=== PATIENT | female | born 1975 ===

== ENCOUNTER 2018-09-06 06:30 | Day surgery (SDC) | payer OTHER ==
[2018-09-06] MEDS ORDERED: LIDOCAINE HCL 1% PF 300MG/30ML VIAL ONE (08:48)
[2018-09-06] MEDS ORDERED: ENOXAPARIN SODIUM 40 MG/0.4 ML DISP.SYRIN SQ ONE (08:48)
[2018-09-06] MEDS ORDERED: SODIUM CHLORIDE IRRIG SOLUTION 3,000 ML IRRIG.SOLN IR ONE (08:48)
[2018-09-06] MEDS ORDERED: SCOPOLAMINE HYDROBROMIDE 1.5MG/72HR PATCH TD ONE (08:48)
[2018-09-06] MEDS ORDERED: VASOPRESSIN 20 UNIT/1 ML ONE (08:48)
[2018-09-06] MEDS ORDERED: ROCURONIUM BROMIDE 10 MG/ML 5ML VIAL ONE (08:48)
[2018-09-06] MEDS ORDERED: LACTATED RINGERS 1,000 ML IV.SOLN IV ONE ×2 (08:48)
[2018-09-06] MEDS ORDERED: SEVOFLURANE 250 ML LIQUID IH ONE (08:48)
[2018-09-06] MEDS ORDERED: PROPOFOL 200 MG/20 ML VIAL IV ONE (08:48)
[2018-09-06] MEDS ORDERED: DEXAMETHASONE SODIUM PHOSPHATE 10 MG/ML VIAL ONE (08:48)
[2018-09-06] MEDS ORDERED: LIDOCAINE HCL 2% PF 100MG/5ML VIAL IJ ONE (08:48)
[2018-09-06] MEDS ORDERED: HYDROmorphone HCL/PF 1 MG/ML VIAL ONE (08:48)
[2018-09-06] MEDS ORDERED: GLYCOPYRROLATE 0.2 MG/1 ML 1 ML ONE (08:48)
[2018-09-06] MEDS ORDERED: ePHEDrine SULFATE 50 MG/1 ML IVP ONE (08:48)
[2018-09-06] MEDS ORDERED: FAMOTIDINE 20 MG/2 ML VIAL IV ONE (08:48)
[2018-09-06] MEDS ORDERED: ceFAZolin SODIUM 1 GM VIAL ONE (08:48)
[2018-09-06] MEDS ORDERED: SUGAMMADEX SODIUM 200 MG/2 ML VIAL IV ONE (08:48)
[2018-09-06] MEDS ORDERED: BUPIV. HCL 0.25% (2.5MG/ML)/EPI. (1:200,000) PF 30 ML VIAL IJ ONE (08:48)
[2018-09-06] MEDS ORDERED: ONDANSETRON HCL/PF 4 MG/ 2ML VIAL ONE (08:48)
[2018-09-06] MEDS ORDERED: fentaNYL CITRATE/PF 100 MCG/2 ML INJ. ONE (08:48)
== END 2018-09-06 10:49 | disposition other institution (70) ==
LOC: OPSURG 06:30
PROVIDERS: ATTEND Surgery
DX: E66.01 Morbid (severe) obesity due to excess calories (principal); Z68.41 Body mass index [BMI] 40.0-44.9, adult
CPT/HCPCS: J0690; J1170; J1650; J2001; J2405; J2704; J3010; J3490; A9270-GY; J7120

== ENCOUNTER 2018-09-06 10:50 | Inpatient (IN) | payer OTHER ==
[2018-09-06] MEDS ORDERED: MORPHINE SULFATE 2 MG/ML VIAL ONE ×4 (11:31→22:52)
[2018-09-06] MEDS ORDERED: ceFAZolin SODIUM 1 GM/50 ML PIGGYBACK IV ONE (16:13)
[2018-09-06] MEDS ORDERED: HYDROcodone-ACETAMIN 7.5-325/15ML SOLN UD CUP PO ONE ×2 (16:15→21:21)
[2018-09-06] MEDS ORDERED: NORMAL SALINE 1,000 ML IV.SOLN IV ONE (18:12)
[2018-09-06] MEDS ORDERED: ACETAMINOPHEN 1,000 MG/100 ML INJ IV ONE (20:18)
[2018-09-07] MEDS ORDERED: ceFAZolin SODIUM 1 GM/50 ML PIGGYBACK IV ONE (00:28)
[2018-09-07] MEDS ORDERED: NORMAL SALINE 1,000 ML IV.SOLN IV ONE ×2 (00:30→08:01)
[2018-09-07] MEDS ORDERED: HYDROcodone-ACETAMIN 7.5-325/15ML SOLN UD CUP PO ONE ×4 (01:01→22:36)
[2018-09-07] MEDS ORDERED: MORPHINE SULFATE 2 MG/ML VIAL ONE (05:14)
[2018-09-07] MEDS ORDERED: ENOXAPARIN SODIUM 40 MG/0.4 ML DISP.SYRIN SQ ONE (08:01)
[2018-09-07] MEDS ORDERED: ONDANSETRON HCL/PF 4 MG/ 2ML VIAL ONE (08:06)
[2018-09-07] MEDS ORDERED: KETOROLAC TROMETHAMINE 30 MG/1ML VIAL ONE ×2 (11:57→19:53)
[2018-09-07] MEDS ORDERED: FAMOTIDINE 20 MG/2 ML VIAL IV ONE (19:53)
[2018-09-08] MEDS ORDERED: HYDROcodone-ACETAMIN 7.5-325/15ML SOLN UD CUP PO ONE ×2 (03:52→07:53)
[2018-09-08] MEDS ORDERED: KETOROLAC TROMETHAMINE 30 MG/1ML VIAL ONE (05:53)
[2018-09-12 10:15] LABS: eGFR (Non-African) > 60
[2018-09-12 10:16] LABS: BASOPHILS % 0.5 % (0.0-1.5); NEUTROPHILS # 13.6 # k/uL (1.4-7.7)
== END 2018-09-08 12:00 | disposition home or self-care (01) | DRG 620 ==
LOC: SOUTH 10:50 → UNDOADMIN 10:50 → ICF 10:50
PROVIDERS: ADMIT Nurse Practitioner Family; ATTEND Nurse Practitioner Family
PROC: 0DB64Z3 Excision of Stomach, Percutaneous Endoscopic Approach, Vertical (ICD-10-PCS; principal; 2018-09-06)
DX: E88.81 Metabolic syndrome and other insulin resistance (principal); Z68.41 Body mass index [BMI] 40.0-44.9, adult; E66.01 Morbid (severe) obesity due to excess calories; I10 Essential (primary) hypertension; E11.9 Type 2 diabetes mellitus without complications; F41.9 Anxiety disorder, unspecified; E78.5 Hyperlipidemia, unspecified; K21.9 Gastro-esophageal reflux disease without esophagitis; H53.009 Unspecified amblyopia, unspecified eye; F32.9 Major depressive disorder, single episode, unspecified; F31.9 Bipolar disorder, unspecified; M79.7 Fibromyalgia; M17.0 Bilateral primary osteoarthritis of knee; M19.071 Primary osteoarthritis, right ankle and foot; M16.0 Bilateral primary osteoarthritis of hip; G89.29 Other chronic pain; M54.9 Dorsalgia, unspecified; N39.3 Stress incontinence (female) (male); J45.909 Unspecified asthma, uncomplicated; M19.072 Primary osteoarthritis, left ankle and foot; R33.9 Retention of urine, unspecified; Z90.710 Acquired absence of both cervix and uterus; Z88.8 Allergy status to other drugs, medicaments and biological substances; Z87.891 Personal history of nicotine dependence; Z79.890 Hormone replacement therapy; Z79.899 Other long term (current) drug therapy
CPT/HCPCS: 80053; 85025; 97165; 97530; A9270; J1650; J1885; J2270; J2405; J7030; 99221